=== PATIENT | male | born 1955 | race Caucasian/White ===

== ENCOUNTER 2021-08-23 08:07 | Day surgery (SDC) | payer MEDICARE, OTHER ==
[2021-08-23] MEDS ORDERED: Depo-Medrol 40 MG/ML IM ONE (08:08)
[2021-08-23] MEDS ORDERED: BUPIVACAINE 0.5% VIAL IJ ONE (08:08)
[2021-08-23] MEDS ORDERED: DIPRIVAN 200 MG/20 ML IV ONE (11:20)
[2021-08-23] MEDS ORDERED: Lactated Ringers 1,000 ML IV ONE (11:40)
--- NOTE | 2021-08-23 12:32 | XRAY ---
Indication: Bilateral SI joint injection. Intraoperative fluoroscopy provided for 21 seconds. 4 digital spot images submitted for interpretation demonstrates posterior needle tip projecting over the inferior left and right SI joints. Correlate with intraoperative findings/report.
--- NOTE | 2021-08-23 13:41 | XRAY ---
21 seconds fluoroscopy time in surgery for bilateral SI joint injections.
== END 2021-08-23 11:45 | disposition home or self-care (01) ==
LOC: SDC-PAIN 08:07
PROVIDERS: ATTEND Psychiatry & Neurology Pain Medicine
DX: M46.1 Sacroiliitis, not elsewhere classified (principal); I10 Essential (primary) hypertension; E11.9 Type 2 diabetes mellitus without complications; Z79.899 Other long term (current) drug therapy
CPT/HCPCS: 27096; 72202; 77002; 82947; G0260; J1030; J2704

== ENCOUNTER 2021-09-20 06:52 | Day surgery (SDC) | payer MEDICARE, OTHER ==
[2021-09-20] MEDS ORDERED: Sodium Chloride 0.9(Preservative Free) 10 ML IJ ONE (08:00)
[2021-09-20] MEDS ORDERED: Depo-Medrol 40 MG/ML IM ONE (08:00)
[2021-09-20] MEDS ORDERED: DIPRIVAN 200 MG/20 ML IV ONE (08:33)
[2021-09-20] MEDS ORDERED: Lactated Ringers 1,000 ML IV ONE (08:59)
--- NOTE | 2021-09-20 10:18 | XRAY ---
Indication: Left L4-S1 transforaminal KULWANT. Intraoperative fluoroscopy provided for 35 seconds. 4 digital spot images submitted for interpretation demonstrates posterior needle tips projecting over the expected left L4 and L5 nerve roots. Small amount of contrast injected for needle tip placement. Correlate with intraoperative findings/report.
--- NOTE | 2021-09-20 10:20 | XRAY ---
35 seconds fluoroscopy time in surgery for left L4-S1 transforaminal KULWANT.
== END 2021-09-20 09:00 | disposition home or self-care (01) ==
LOC: SDC-PAIN 06:52
PROVIDERS: ATTEND Psychiatry & Neurology Pain Medicine
DX: M54.16 Radiculopathy, lumbar region (principal); I10 Essential (primary) hypertension; E11.9 Type 2 diabetes mellitus without complications; Z79.899 Other long term (current) drug therapy
CPT/HCPCS: 64483; 64484; 72100; 77003; 82947; J1030; J2704; Q9966

== ENCOUNTER 2021-10-11 06:36 | Day surgery (SDC) | payer MEDICARE, OTHER ==
[2021-10-11] MEDS ORDERED: Depo-Medrol 40 MG/ML IM ONE (06:37)
[2021-10-11] MEDS ORDERED: LIDOCAINE HCL 2% 100 MG/5 ML IJ ONE (06:37)
[2021-10-11] MEDS ORDERED: Lactated Ringers 1,000 ML IV ONE (09:05)
[2021-10-11] MEDS ORDERED: DIPRIVAN 200 MG/20 ML IV ONE (09:14)
--- NOTE | 2021-10-11 10:18 | XRAY ---
Indication: Bilateral L4-S1 MBB. Intraoperative fluoroscopy provided for 22 seconds. Single digital spot image submitted for interpretation demonstrates posterior needle tips projecting over the expected left and right L4-S1 nerve roots. Correlate with intraoperative findings/report.
--- NOTE | 2021-10-11 12:12 | XRAY ---
2 seconds fluoroscopy time in surgery for bilateral L4-S1 MBB.
== END 2021-10-11 09:40 | disposition home or self-care (01) ==
LOC: SDC-PAIN 06:36
PROVIDERS: ATTEND Psychiatry & Neurology Pain Medicine
DX: M47.816 Spondylosis without myelopathy or radiculopathy, lumbar region (principal); I10 Essential (primary) hypertension; E11.9 Type 2 diabetes mellitus without complications; Z79.899 Other long term (current) drug therapy
CPT/HCPCS: 64493; 64494; 72020; 77002; 82947; J1030; J2704

== ENCOUNTER 2021-11-02 06:48 | Day surgery (SDC) | payer MEDICARE, OTHER ==
[2021-11-02] MEDS ORDERED: Depo-Medrol 40 MG/ML IM ONE (06:49)
[2021-11-02] MEDS ORDERED: BUPIVACAINE 0.5% VIAL IJ ONE (06:49)
[2021-11-02] MEDS ORDERED: DIPRIVAN 200 MG/20 ML IV ONE (09:23)
[2021-11-02] MEDS ORDERED: Lactated Ringers 1,000 ML IV ONE (10:07)
--- NOTE | 2021-11-02 11:56 | XRAY ---
Indication: Bilateral L4-S1 MBB. Intraoperative fluoroscopy provided for 8 seconds. Single digital spot image submitted for interpretation demonstrates posterior needle tips projecting over the expected left and right L4-S1 nerve roots. Correlate with intraoperative findings/report.
--- NOTE | 2021-11-02 12:12 | XRAY ---
8 seconds fluoroscopy time in surgery for bilateral L4-S1 MBB.
== END 2021-11-02 09:42 | disposition home or self-care (01) ==
LOC: SDC-PAIN 06:48
PROVIDERS: ATTEND Psychiatry & Neurology Pain Medicine
DX: M47.816 Spondylosis without myelopathy or radiculopathy, lumbar region (principal); E11.9 Type 2 diabetes mellitus without complications; Z79.899 Other long term (current) drug therapy
CPT/HCPCS: 64493; 64494; 72020; 77002; 82947; J1030; J2704

== ENCOUNTER 2021-11-22 07:41 | Day surgery (SDC) | payer MEDICARE, OTHER ==
[2021-11-22] MEDS ORDERED: BUPIVACAINE 0.5% VIAL IJ ONE (07:42)
[2021-11-22] MEDS ORDERED: Xylocaine 1% Vial 30 ML PF IJ ONE (07:42)
[2021-11-22] MEDS ORDERED: Depo-Medrol 40 MG/ML IM ONE (07:42)
[2021-11-22] MEDS ORDERED: Lactated Ringers 1,000 ML IV ONE (09:18)
[2021-11-22] MEDS ORDERED: DIPRIVAN 200 MG/20 ML IV ONE (09:45)
--- NOTE | 2021-11-22 10:38 | XRAY ---
Indication: Left L4-S1 RFA. Intraoperative fluoroscopy provided for 29 seconds. 3 digital spot images submitted for interpretation demonstrate posterior needle tips projecting over the expected left L4-S1 nerve roots. Correlate with intraoperative findings/report.
--- NOTE | 2021-11-22 12:48 | XRAY ---
29 seconds fluoroscopy time in surgery for left L4-S1 RFA.
== END 2021-11-22 10:20 | disposition home or self-care (01) ==
LOC: SDC-PAIN 07:41
PROVIDERS: ATTEND Psychiatry & Neurology Pain Medicine
DX: M47.816 Spondylosis without myelopathy or radiculopathy, lumbar region (principal); I10 Essential (primary) hypertension; E11.9 Type 2 diabetes mellitus without complications; Z79.899 Other long term (current) drug therapy
CPT/HCPCS: 64635; 64636; 72100; 77002; 82947; J1030; J2001; J2704

== ENCOUNTER 2021-11-30 07:26 | Day surgery (SDC) | payer MEDICARE, OTHER ==
[2021-11-30] MEDS ORDERED: Marcaine Mpf 0.5% Vial 30 Ml IJ ONE (07:27)
[2021-11-30] MEDS ORDERED: Depo-Medrol 40 MG/ML IM ONE (07:27)
[2021-11-30] MEDS ORDERED: Xylocaine 1% Vial 30 ML PF IJ ONE (07:27)
[2021-11-30] MEDS ORDERED: DIPRIVAN 200 MG/20 ML IV ONE (08:54)
[2021-11-30] MEDS ORDERED: Lactated Ringers 1,000 ML IV ONE (09:02)
--- NOTE | 2021-11-30 10:11 | XRAY ---
Indication: Right L4-S1 RFA. Intraoperative fluoroscopy provided for 19 seconds. 3 digital spot image submitted for interpretation demonstrates posterior needle tips projecting over the expected right L4-S1 nerve roots. Correlate with intraoperative findings/report.
--- NOTE | 2021-11-30 11:25 | XRAY ---
19 seconds of fluoroscopy was used in surgery for a right L4-S1 RFA.
== END 2021-11-30 09:21 | disposition home or self-care (01) ==
LOC: SDC-PAIN 07:26
PROVIDERS: ATTEND Psychiatry & Neurology Pain Medicine
DX: M47.816 Spondylosis without myelopathy or radiculopathy, lumbar region (principal); E11.9 Type 2 diabetes mellitus without complications; Z79.899 Other long term (current) drug therapy
CPT/HCPCS: 64635; 64636; 72100; 77002; 82947; J1030; J2001; J2704

== ENCOUNTER 2021-12-20 07:18 | Day surgery (SDC) | payer MEDICARE, OTHER ==
[2021-12-20] MEDS ORDERED: Marcaine Mpf 0.5% Vial 30 Ml IJ ONE (07:19)
[2021-12-20] MEDS ORDERED: Depo-Medrol 40 MG/ML IM ONE (07:19)
[2021-12-20] MEDS ORDERED: DIPRIVAN 200 MG/20 ML IV ONE (08:41)
--- NOTE | 2021-12-20 09:50 | XRAY ---
Indication: Bilateral SI joint injection. Intraoperative fluoroscopy provided for 17 seconds. 5 digital spot images submitted for interpretation demonstrates posterior needle tip projecting over the inferior left and right SI joint. Correlate with intraoperative findings/report.
[2021-12-20] MEDS ORDERED: Lactated Ringers 1,000 ML IV ONE (10:22)
--- NOTE | 2021-12-20 10:53 | XRAY ---
17 seconds of fluoroscopy was used in surgery for bilateral SI injections.
== END 2021-12-20 09:08 | disposition home or self-care (01) ==
LOC: SDC-PAIN 07:18
PROVIDERS: ATTEND Psychiatry & Neurology Pain Medicine
DX: M46.1 Sacroiliitis, not elsewhere classified (principal); E11.9 Type 2 diabetes mellitus without complications; Z79.899 Other long term (current) drug therapy
CPT/HCPCS: 27096; 72202; 77002; 82947; G0260; J1030; J2704

== ENCOUNTER 2022-01-10 14:47 | Day surgery (SDC) | payer MEDICARE, OTHER ==
[2022-01-10] MEDS ORDERED: Marcaine Mpf 0.5% Vial 30 Ml IJ ONE (14:48)
[2022-01-10] MEDS ORDERED: Depo-Medrol 40 MG/ML IM ONE (14:48)
[2022-01-10] MEDS ORDERED: XYLOCAINE-MPF 1% 5ML SDV IJ ONE (14:48)
--- NOTE | 2022-01-11 18:31 | XRAY ---
7 seconds of fluoroscopy was used in surgery for a left knee intra-articular injection.
--- NOTE | 2022-01-12 21:34 | XRAY ---
Indication: Left intra-articular knee injection. Intraoperative fluoroscopy provided for 7 seconds. Single spot image submitted for interpetation demonstrates needle tip projecting over the left intercondylar notch. Small amount of contrast injected for needle tip placement. Correlate with intraoperative findings/report.
== END 2022-01-10 16:12 | disposition home or self-care (01) ==
LOC: SDC-PAIN 14:47
PROVIDERS: ATTEND Psychiatry & Neurology Pain Medicine
DX: M17.12 Unilateral primary osteoarthritis, left knee (principal); E11.9 Type 2 diabetes mellitus without complications; Z79.899 Other long term (current) drug therapy
CPT/HCPCS: 20610; 73560; 77002; 82947; J1030; Q9966

== ENCOUNTER 2024-07-01 08:04 | Day surgery (SDC) | payer MEDICARE, OTHER ==
[2024-07-01] MEDS ORDERED: BUPIVACAINE 0.5% VIAL IJ ONE (08:05)
[2024-07-01] MEDS ORDERED: Depo-Medrol 40 MG/ML IM ONE (08:05)
[2024-07-01] MEDS ORDERED: DIPRIVAN 200 MG/20 ML IV ONE (09:53)
--- NOTE | 2024-07-01 12:29 | XRAY ---
Indication: Right SI joint injection. Intraoperative fluoroscopy was provided for 7 seconds. 2 digital spot image submitted for interpretation demonstrates posterior needle tip projecting over right SI joint. Small amount of contrast injected for needle tip placement. Correlate with intraoperative findings/report.
--- NOTE | 2024-07-01 12:52 | XRAY ---
7 seconds of fluoroscopy was used in surgery for a right sacroiliac joint injection.
== END 2024-07-01 10:52 | disposition home or self-care (01) ==
LOC: SDC-PAIN 08:04
PROVIDERS: ATTEND Psychiatry & Neurology Pain Medicine
DX: M46.1 Sacroiliitis, not elsewhere classified (principal); E11.9 Type 2 diabetes mellitus without complications
CPT/HCPCS: 72170; 77002; 82947; J2704

== ENCOUNTER 2024-09-16 08:35 | Day surgery (SDC) | payer MEDICARE, OTHER ==
[2024-09-16] MEDS ORDERED: dexAMETHasone sodium phosphate IJ ONE (08:36)
[2024-09-16] MEDS ORDERED: Sodium Chloride 0.9(Preservative Free) 10 ML IJ ONE (08:36)
[2024-09-16] MEDS ORDERED: propofoL IV ONE (10:41)
--- NOTE | 2024-09-16 11:38 | XRAY ---
Indication: Right L3-L5 transforaminal KULWANT. Interoperative fluoroscopy provided for 21 seconds. 5 digital spot image submitted for interpretation demonstrates posterior needle tips project over expected right L3 and L4 nerve root. Small amount of contrast injected for needle tip placement. Correlate with intraoperative findings/report.
--- NOTE | 2024-09-16 11:44 | XRAY ---
21 seconds of fluoroscopy was used in surgery for a right L3-L5 transforaminal KULWANT.
== END 2024-09-16 11:14 | disposition home or self-care (01) ==
LOC: SDC-PAIN 08:35
PROVIDERS: ATTEND Psychiatry & Neurology Pain Medicine
DX: M54.16 Radiculopathy, lumbar region (principal); E11.9 Type 2 diabetes mellitus without complications
CPT/HCPCS: 64483; 64484; 72100; 77003; 82947; J1100; J2704; Q9966